=== PATIENT | male | born 1985 ===

== ENCOUNTER 2017-07-05 14:16 | Emergency (ER) | payer SELFPAY ==
[~2017-07-05] VITALS: Ht 177.8 cm; Wt 86.2 kg
[2017-07-05 14:17] VITALS: BP 125/85
== END 2017-07-05 17:07 | disposition home or self-care (01) ==
LOC: ER 14:16
DX: S01.111A Laceration without foreign body of right eyelid and periocular area, initial encounter (principal); W22.8XXA Striking against or struck by other objects, initial encounter; Y93.89 Activity, other specified; Y92.89 Other specified places as the place of occurrence of the external cause; Y99.8 Other external cause status
CPT/HCPCS: 12011